=== PATIENT | female | born 1975 | race Caucasian/White ===

== ENCOUNTER 2017-03-30 10:16 | Emergency (ER) | payer OTHER ==
[2017-03-30 10:48] LABS: #Basophils 0.1 thou/uL (0.0-0.2); #Eosinphils 0.3 thou/uL (0.0-0.7); #Lymphocytes 1.8 thou/uL (1.20-3.40); #Monocytes 0.4 thou/uL (0.11-0.59); #Neutrophils 4.7 thou/uL (1.40-6.50); %Eosinophils 3.6 % (0.0-10.0); %Lymphocytes 24.3 % (21.0-51.0); %Monocytes 6.2 % (0.0-10.0); %Neutrophils 64.9 % (42.0-75.0); Hemoglobin 12.8 g/dL (12.0-16.0); Mean Corpuscular HGB CONC 33.7 g/dL (32.0-36.0); Mean Corpuscular Hemoglobin 29.8 pg (27.0-31.0); Mean Corpuscular Volume 88.5 fl (81.0-99.0); Platelet Count 202 thou/uL (130-400); RBC Distribution Width 12.2 % (11.5-14.5); Red Blood Cell (RBC) Count 4.31 mill/uL (4.20-5.40); White Blood Cell (WBC) Count 7.2 thou/uL (4.8-10.8)
[2017-03-30 11:05] LABS: ALT (SGPT) 24 U/L (8-55); AST (SGOT) 26 U/L (5-34); Albumin 3.7 g/dL (3.5-5.0); Alkaline Phosphatase 91 U/L (40-150); Anion Gap 12 mmol/L (10-20); BUN (Urea Nitrogen) 16 mg/dL (7.0-18.7); Bilirubin, Total 0.5 mg/dL (0.2-1.2); Calc. Creatinine Clearance 0 mL/min (70-130); Calcium 8.3 mg/dL (7.8-10.44); Carbon Dioxide 23 mmol/L (22-29); Chloride 107 mmol/L (98-107); Estimated GFR-MDRD Greater than 90; Globulin 2.8 g/dL (2.4-3.5); Glucose 88 mg/dL (70-105); Potassium 3.7 mmol/L (3.5-5.1); Protein, Total 6.5 g/dL (6.0-8.3); Sodium 138 mmol/L (136-145)
[2017-03-30 11:07] LABS: CKMB 0.5 ng/mL (0-6.6); Troponin I Less than 0.010 ng/mL (< 0.028)
--- NOTE | 2017-03-30 11:10 | RAD ---
FRONTAL VIEW CHEST: COMPARISON: 12/06/13. INDICATION: Chest pain. FINDINGS: There is no consolidation, effusion, or pneumothorax. Cardiac silhouette is within normal limits of size. Osseous structures are intact. IMPRESSION: No focal consolidation. POS: [facility]
[2017-03-30] MEDS ORDERED: Ketorolac Tromethamine 60 MG/2 ML VIAL ONE (11:57)
== END 2017-03-30 12:45 | disposition home or self-care (01) ==
LOC: MADERS 10:16
DX: R07.9 Chest pain, unspecified (principal); F17.210 Nicotine dependence, cigarettes, uncomplicated; F39 Unspecified mood [affective] disorder
CPT/HCPCS: 71010; 80053; 82553; 84484; 85025; 85379; 93005; 96372; J1885

== ENCOUNTER 2017-08-04 11:33 | Emergency (ER) | payer OTHER ==
[2017-08-04] MEDS ORDERED: Ondansetron ODT 4 MG TAB ONE (12:01)
[2017-08-04] MEDS ORDERED: Ketorolac Tromethamine 30 MG/ML VIAL ONE (12:01)
== END 2017-08-04 12:10 | disposition home or self-care (01) ==
LOC: MADERS 11:33
DX: M46.1 Sacroiliitis, not elsewhere classified (principal); G43.909 Migraine, unspecified, not intractable, without status migrainosus; K21.9 Gastro-esophageal reflux disease without esophagitis; Z87.891 Personal history of nicotine dependence
CPT/HCPCS: 96372; J1885; Q0162

== ENCOUNTER 2017-08-25 19:21 | Emergency (ER) | payer OTHER ==
[~2017-08-25 19:21] MED LIST: Sodium Chloride 0.9% 1,000 ML BAG ONE
[2017-08-25] MEDS ORDERED: Metoclopramide HCl 10 MG TAB ONE (20:26)
[2017-08-25] MEDS ORDERED: diphenhydrAMINE 50 MG/ML VIAL ONE (20:26)
[2017-08-25] MEDS ORDERED: Metoclopramide HCl 10 MG/2 ML VIAL ONE ×2 (20:27→21:35)
[2017-08-25 20:34] LABS: Bilirubin Negative (Negative); Blood, Urine Negative (Negative); Glucose, Urine (Dipstick) Negative (Negative); Leukocyte Trace (Negative); Nitrite Negative (Negative); Protein, Urine (Dipstick) Negative (Neg-Trace); Specific Gravity, Urine 1.025 (1.005-1.030); Urobilinogen 0.2 mg/dL (0.2-1.0); pH, Urine 5.5 (5.0-9.0)
[2017-08-25 21:00] LABS: Bacteria/HPF 1+ HPF (None Seen); Clarity Hazy (Clear); RBC/HPF 0-3 HPF (0-3)
--- NOTE | 2017-08-25 21:49 | RAD ---
THREE VIEWS LUMBAR SPINE: Date: 08-25-17 History: Back pain with extending down legs. Symptoms have been present for three months. Comparison: None. FINDINGS: There are five non-rib bearing lumbar type vertebral bodies. Lateral views are obtained with under pe netrated technique which limits osseous detail, but no obvious fracture is seen. The vertebral body h eights and intervertebral disc spaces are within normal limits. No fracture or subluxation is identif ied. Rounded calcifications overlie the left lower quadrant which cannot be further localized on this exam. Surgical clips overlie the right upper quadrant. IMPRESSION: No fracture or subluxation involving the lumbar spine. Given patient's radicular symptoms, MRI lumbar spine on a non-emergent basis may be helpful for further evaluation. POS: [facility]
--- NOTE | 2017-08-25 21:53 | RAD ---
THREE VIEWS SACROILIAC JOINTS: Date: 08-25-17 History: Back pain with pain extending down legs for three months. FINDINGS: The sacroiliac joints are symmetric in appearance bilaterally. No lytic or sclerotic lesions are iden tified. No fracture is seen. There are a few rounded calcifications overlying the left lower quadrant , some of which demonstrate lucent centers. These calcifications may represent gonadal vein calcifica tions. A ureteral calculus cannot be entirely excluded based on this exam. Phleboliths overlie the ri ght hemipelvis. IMPRESSION: 1. No acute osseous abnormality involving the sacroiliac joints bilaterally. 2. Calcifications overlying the left lower quadrant, some of which demonstrate lucent centers and may represent gonadal vein calcifications/phleboliths. However, ureteral calculus cannot be entirely exc luded based on this exam. POS: [facility]
== END 2017-08-25 22:20 | disposition home or self-care (01) ==
LOC: MADERS 19:21
DX: M53.3 Sacrococcygeal disorders, not elsewhere classified (principal); G43.909 Migraine, unspecified, not intractable, without status migrainosus; K21.9 Gastro-esophageal reflux disease without esophagitis; Z87.891 Personal history of nicotine dependence
CPT/HCPCS: 72100; 72202; 81003; 81015; 96361; 96374; 96375; 96376; J1200; J2765; J7050

== ENCOUNTER 2017-09-19 19:58 | Emergency (ER) | payer OTHER ==
[2017-09-19] MEDS ORDERED: Ibuprofen 800 MG TAB ONE (20:23)
[2017-09-19] MEDS ORDERED: Amoxicillin/Potassium Clav 875 MG TAB ONE (20:23)
[2017-09-19] MEDS ORDERED: predniSONE 20 MG TAB ONE (20:23)
== END 2017-09-19 20:31 | disposition home or self-care (01) ==
LOC: MADERS 19:58
DX: J02.9 Acute pharyngitis, unspecified (principal); G43.909 Migraine, unspecified, not intractable, without status migrainosus; Z87.891 Personal history of nicotine dependence
CPT/HCPCS: 99282; J7506

== ENCOUNTER 2017-11-08 16:45 | Emergency (ER) | payer SELFPAY ==
[2017-11-08] MEDS ORDERED: AMOXicillin 250 MG CAP ONE (17:45)
== END 2017-11-08 17:50 | disposition home or self-care (01) ==
LOC: MADERS 16:45
DX: J01.00 Acute maxillary sinusitis, unspecified (principal); J20.9 Acute bronchitis, unspecified; G43.909 Migraine, unspecified, not intractable, without status migrainosus; F39 Unspecified mood [affective] disorder
CPT/HCPCS: 99283

== ENCOUNTER 2018-02-06 20:21 | Emergency (ER) | payer SELFPAY ==
[2018-02-06] MEDS ORDERED: HYDROcodone/Acetaminophen 5/325 mg Tablet ONE (20:39)
--- NOTE | 2018-02-06 21:29 | CT ---
CT OF CHEST PERFORMED WITHOUT CONTRAST ENHANCEMENT: 02/06/18 HISTORY: Chest pain status post injury. The lungs are clear of any infiltrative process. No pleural effusions or evidence for pneumothorax. T here are no rib fractures identified. Lack of IV contrast does limit detail but mediastinal structure s appear unremarkable. The visualized liver parenchyma is normal. The gallbladder has been removed. IMPRESSION: No acute findings. POS: [facility]
== END 2018-02-06 21:39 | disposition home or self-care (01) ==
LOC: MADERS 20:21
DX: S29.011A Strain of muscle and tendon of front wall of thorax, initial encounter (principal); K21.9 Gastro-esophageal reflux disease without esophagitis; F06.30 Mood disorder due to known physiological condition, unspecified; G43.909 Migraine, unspecified, not intractable, without status migrainosus; Z87.891 Personal history of nicotine dependence; W19.XXXA Unspecified fall, initial encounter
CPT/HCPCS: 71250

== ENCOUNTER 2019-03-17 14:48 | Emergency (ER) | payer BC ==
[2019-03-17] MEDS ORDERED: Ondansetron ODT 4 MG TAB ONE (15:07)
[2019-03-17] MEDS ORDERED: Ibuprofen 800 MG TAB ONE (15:07)
[2019-03-17 15:28] LABS: Bilirubin Negative (Negative); Blood, Urine Trace (Negative); Glucose, Urine (Dipstick) Negative (Negative); Leukocyte Trace (Negative); Nitrite Negative (Negative); Protein, Urine (Dipstick) Trace mg/dL (Neg-Trace); Urobilinogen > or = 8.0 mg/dL (Less than 2)
[2019-03-17 15:29] LABS: Clarity Hazy (Clear)
[2019-03-17] MEDS ORDERED: Bicillin LA 1.2 MILLION UNITS/2 ML SYRINGE ONE (15:32)
[2019-03-17 15:37] LABS: Bacteria/HPF Rare-Few HPF (None Seen)
== END 2019-03-17 16:32 | disposition home or self-care (01) ==
LOC: MADERS 14:48
DX: J02.0 Streptococcal pharyngitis (principal); N39.0 Urinary tract infection, site not specified; K21.9 Gastro-esophageal reflux disease without esophagitis; G43.909 Migraine, unspecified, not intractable, without status migrainosus; F41.9 Anxiety disorder, unspecified; F32.9 Major depressive disorder, single episode, unspecified; F39 Unspecified mood [affective] disorder; Z87.891 Personal history of nicotine dependence; Z79.899 Other long term (current) drug therapy
CPT/HCPCS: 81003; 81015; 87086; 87430; 87804; 96372; 99284; J0561; Q0162